=== PATIENT | male | born 1995 | race Caucasian/White ===

== ENCOUNTER 2024-07-10 16:26 | Emergency (ER) | payer OTHER, SELFPAY ==
[2024-07-10 16:53] VITALS: BP 135/86
--- NOTE | 2024-07-10 16:55 | ED.GENMED ---
ED Provider Triage
-
Patient seen by provider in Triage?: Seen in Triage
28 y/o M with no pmh
says 2 weeks ago he was on vacation and tripped up the step and hit it with his shaikh
had wound and bruising
says it got infected
went to and is on doxy and ceftin and feels like it is not healing properly
xrays at no fracture
no fever/chills
no h/o dm
History of Present Illness
General
Chief Complaint: Skin Surface Trauma
Source: patient
Exam Limitations: none
Time Seen by Provider: 07/10/24 16:58
Nursing documentation reviewed up to this point in time: agreed with
History of Present Illness
History of Present Illness:
28 y/o M with no sig pmh
here for wound chekc
Says he was in [place] and fell trpping up the steps and cut his shaikh on the step
he had a wound there and some hemoatma
over the following few days he developed brusing that leaked down his leg to his foot
but he felt that the wound was't heealing
He went to urgent care on 11�20 and had the wound reopened and they drained a portion of the hematoma. He took a photo of it. He was put on cefuroxime. Patient took the cefuroxime and then followed up with them yesterday. The provider who saw
him yesterday thought that was a little bit of redness around the wound and added doxycycline. Patient has had no systemic symptoms. His calf is still swollen some but is not tender in the calf. He mostly has pain in the anterior area where he
struck his leg originally. There is no numbness tingling or weakness in the foot. He only took 1 dose of the doxycycline. He is here for second opinion. He does not have a family doctor.
He did originally have x-rays at urgent care showing no fracture
Past History
Past History
ED Past Medical History: None
ED Past Surgical History: None
Phy Exam
Physical Exam
Physical Exam:
GENERAL: Alert , in no apparent distress, comfortable at rest
HEAD: NCAT
CV: 2+ DP PULSES B/L
NEUROLOGICAL: Alert and oriented, no focal neuro deficits, , 5/5 strength, sensation intact, ambulation slight limp right leg
SKIN: Warm and dry, patient has a wound approximately 3-1/2 cm to the anterior tibial region
Within the wound which is slightly open there is a scab
Surrounding the incision there is a very minimal area of erythema approximately 1 cm around it
Otherwise there is bruising which extends down the lateral aspect of the leg down into the ankle and foot. It is not tender. The compartment is soft. Given the progression of the pictures that I was able to look at it looks like the swelling is
improved
MUSCULOSKELETAL: Is full range of motion of the ankle and knee with a wound to the anterior tibial region
PSYCH: Normal and appropriate interaction.
Course
Vital Signs
Initial and Last Documented VS:
Initial Vital Signs
Temp Pulse Resp BP Pulse Ox
37.2 C 96 16 135/86 97
07/10/24 16:53 07/10/24 16:53 07/10/24 16:53 07/10/24 16:53 07/10/24 16:53
Last Documented Vital Signs
Temp Pulse Resp BP Pulse Ox
37.2 C 96 16 135/86 97
07/10/24 16:53 07/10/24 16:53 07/10/24 16:53 07/10/24 16:53 07/10/24 16:53
MDM/Problems Addressed
Differential Diagnosis Includes:
Infected hematoma, cellulitis, fracture, less likely blood clot
MDM/Problems Addressed:
28-year-old male with no medical problems presents for second opinion after being seen at urgent care. Patient had a injury where he tripped up the steps and had a laceration and hematoma to the right anterior tibial region. This was in [place].
He said the swelling was pretty significant the day of and it has gotten slightly better. We he is now having bruising which has leaked into the ankle and foot region. Most of his pain is anterior around the wound. 6 days ago he was seen in
urgent care here where they debrided the hematoma and open the incision site and placed him on antibiotics. They followed up with him yesterday and added doxycycline because they thought it was a little bit red. He is not having any systemic
symptoms. He overall looks very well and he has minimal erythema around an open healing wound by secondary intention. He does have some bruising but this is not concerning.
Normal pulses. The overall impression is that this hematoma is healing. I agree with the adding of doxycycline for MRSA coverage.
However I do feel like this overall looks nontoxic and that it is healing. The bruising does not concern me at this point. His compartments soft. Will encourage him to continue antibiotics, warm compresses, NSAIDs and follow-up
*Critical Care Note
Total Time (30-74mins, 75-104mins- exclusive of procedures): Not Applicable
ED Attending Note
-
Portions of this chart may have been created with voice recognition software.� Occasional wrong word or��sound alike� substitutions may have occurred due to the inherent limitations of voice recognition software.
Discharge Plan
Departure
Patient Disposition: Home (Routine Discharge)
Date of Disposition: 07/10/24
Time of Disposition: 17:17
Patient with high blood pressure during this ER visit?: No
Condition: Fair
Covid-19: Not Applicable
Discharge Problem:
Visit for wound check
Instructions: Wound Care (DC)
Prescriptions:
No Action
metaxalone [Skelaxin] 800 MG tablet
800 mg PO .3-4 TIMES DAILY PRN PRN (Reason: MUSCLE SPASM/TIGHTNESS) Qty: 30 0RF
Activity Restrictions/Additional Instructions:
Continue the antibiotics. When you are home you can leave it uncovered. When you are working you can wrap it. Apply warm compresses off-and-on, take NSAIDs like Motrin or Aleve for swelling and pain. Follow-up with urgent care next week. Return
for worsening redness or severe pain. Also return for Swelling, numbness tingling or weakness, chest pain or shortness of breath
Interventions
Interventions:
*Risk Screen - Suicide Last Done: 07/10/24 17:02
*General Assessment Last Done: 07/10/24 17:02
*Neglect/Abuse Screening Last Done: 07/10/24 17:02
ED- Fall Risk Assessment Last Done: 07/10/24 17:04
*ED COVID-19 Vaccine History Last Done: 07/10/24 17:02
ED-Skin Assessment Last Done: 07/10/24 17:03
Discharge Date and Time
Print Language: WOLOF
== END 2024-07-10 17:32 | disposition home or self-care (01) ==
LOC: EMR 16:26
PROVIDERS: EMERGENCY PHYSICIAN Emergency Medicine
DX: Z48.00 Encounter for change or removal of nonsurgical wound dressing (principal); S80.11XD Contusion of right lower leg, subsequent encounter; W10.9XXD Fall (on) (from) unspecified stairs and steps, subsequent encounter
CPT/HCPCS: 99283